=== PATIENT | female | born 1990 | race Hispanic/Latino ===

== ENCOUNTER 2023-09-01 09:48 | Inpatient (IN) | payer BC ==
[2023-08-29 13:23] LABS: Hematocrit 37.8 % (34.9-44.5); Hemoglobin 12.9 g/dL (12.0-15.5); Platelet Count 307 10x3/uL (150-450)
[2023-08-29 14:01] LABS: HBsAg Index 0.14 S/CO (0-0.99); Hep B Surf Ag Non-Reactive S/CO (NonReactive)
[2023-08-29 14:02] LABS: Syphilis Antibody Nonreactive (Nonreactive); Syphilis Antibody Index 0.06 S/CO (<1.00 Non-Reactive)
[~2023-09-01 09:48] MED LIST: Bicitra 30 ML UDCUP PO PRN; CEFAZOLIN 2 GM in Sodium Chloride 0.9% 100 ML IVPB SCH; Carboprost 250 MCG/ML AMP IM PRN; Diphenoxylate HCl/Atropine Tablet PO PRN; Famotidine/PF 20 mg/2ml Vial SLOW IVP PRN; Misoprostol 200 MCG TAB PR PRN; Ondansetron PF 4 MG/2 ML Vial IVP PRN; Oxytocin 30 units/NS 500 ML 500 ML IV SCH; Promethazine HCl 25 MG/ML VIAL IM PRN; hydrALAZINE 20 MG/ML VIAL SLOW IVP PRN
[2023-09-01] MEDS: Lactated Ringer's 1,000 ML IV SCH (10:30)
[2023-09-01 11:15] VITALS: BMI 31.2
[2023-09-01] MEDS ORDERED: Meperidine HCl/PF 25 MG (1 mL) VIAL SLOW IVP PRN (11:17)
[2023-09-01] MEDS ORDERED: Naloxone HCl 0.4 mg/ml Vial IVP PRN ×2 (11:17)
[2023-09-01] MEDS ORDERED: fentaNYL 50 mcg/mL 1 mL Vial SLOW IVP PRN (11:17)
[2023-09-01] MEDS ORDERED: Ondansetron PF 4 MG/2 ML Vial IVP PRN ×3 (11:17→15:28)
[2023-09-01] MEDS ORDERED: HYDROmorphone 0.5 MG/0.5 ML SYRINGE SLOW IVP PRN (11:17)
[2023-09-01] MEDS ORDERED: Promethazine HCl 25 MG/ML VIAL IM PRN ×2 (11:17→15:28)
[2023-09-01] MEDS ORDERED: diphenhydrAMINE 50 MG/ML VIAL IVP PRN (11:17)
[2023-09-01] MEDS ORDERED: Naloxone HCl 0.4 mg/ml Vial IV PRN (11:17)
[2023-09-01] MEDS ORDERED: Moisturizing Cream (Eucerin) 113 GM JAR TOP PRN (11:17)
[2023-09-01] MEDS ORDERED: Communication Order-Pharmacy FS SCH (11:30)
[2023-09-01] MEDS ORDERED: Ketorolac Tromethamine 30 MG (1 mL) VIAL IVP SCH (11:30)
[2023-09-01] MEDS: CEFAZOLIN 2 GM VIAL ONE (12:30)
[2023-09-01] MEDS: Methylergonovine 0.2 MG/ML VIAL IM PRN (12:52)
[2023-09-01] MEDS: Tranexamic Acid 1,000 MG/10 ML VIAL IVP PRN (12:55)
[2023-09-01] MEDS: PHENYLEPHRINE-NS 100 MCG/ML 10 ML SYRINGE ONE ×2 (13:26→13:28)
[2023-09-01] MEDS: Ondansetron PF 4 MG/2 ML Vial ONE (13:26)
[2023-09-01] MEDS: Oxytocin 10 UNITS/ML VIAL ONE (13:26)
[2023-09-01] MEDS: Dexamethasone 4 mg/ml Vial ONE (13:26)
[2023-09-01] MEDS: fentaNYL 50 mcg/mL 1 mL Vial ONE (13:27)
[2023-09-01] MEDS: Morphine PF 10 MG/10 ML VIAL ONE (13:27)
[2023-09-01] MEDS: Erythromycin Base 0.5% Oint 1 GM TUBE ONE (13:27)
[2023-09-01] MEDS: Phytonadione Neonatal 1 MG/0.5 ML AMP ONE (13:28)
[2023-09-01] MEDS ORDERED: hydrALAZINE 20 MG/ML VIAL SLOW IVP PRN (15:28)
[2023-09-01] MEDS ORDERED: Acetaminophen 325 MG TAB PO PRN (15:28)
[2023-09-01] MEDS ORDERED: Bisacodyl 10 MG SUPP PR PRN (15:28)
[2023-09-01] MEDS ORDERED: HYDROcodone/Acetaminophen 5/325 mg Tablet PO PRN ×2 (15:28→23:30)
[2023-09-01] MEDS ORDERED: Lanolin Ointment 7 GM TUBE TOP PRN (15:28)
[2023-09-01] MEDS ORDERED: diphenhydrAMINE 25 MG CAP PO PRN (15:28)
[2023-09-01] MEDS: Docusate 100 MG CAP PO SCH (21:20)
[2023-09-02 04:12] LABS: Hematocrit 32.7 % (34.9-44.5); Hemoglobin 11.2 g/dL (12.0-15.5); Mean Corpuscular HGB CONC 34.3 g/dL (32.0-36.0); Mean Corpuscular Volume 90.6 fL (81.6-98.3); Mean Platelet Volume 10.2 fL (7.4-10.4); Platelet Count 281 10x3/uL (150-450); RBC Distribution Width 15.8 % (11.5-14.5); Red Blood Cell (RBC) Count 3.61 10x6/uL (3.90-5.03); White Blood Cell (WBC) Count 15.8 10x3/uL (3.5-10.5)
[2023-09-02] MEDS: Ketorolac Tromethamine 30 MG (1 mL) VIAL IVP PRN (04:52)
[2023-09-02] MEDS: Ferrous Sulfate 325 MG TAB PO SCH (05:52)
[2023-09-02] MEDS: Prenatal Vitamin 1 TAB PO SCH (08:19)
[2023-09-02] MEDS: Simethicone Chewable 80 MG TAB PO PRN (08:35)
[2023-09-02] MEDS: HYDROcodone/Acetaminophen 5/325 mg Tablet PO PRN (12:41)
[2023-09-02] MEDS: Ibuprofen 800 MG TAB PO SCH (20:48)
[2023-09-03] MEDS: Hepatitis B Vaccine 10 MCG/0.5 ML SYR ONE (20:08)
[2023-09-03] MEDS: Boostrix 0.5 ML (Tdap) VIAL (>/=7 yrs of age) IM ONE (20:08)
[2023-09-04 07:56] VITALS: BP 109/67; TEMP 98.3
== END 2023-09-04 13:45 | disposition home or self-care (01) | DRG 788 ==
LOC: CSHLD 09:48 → CSHPP 15:15
PROVIDERS: ADMIT Obstetrics & Gynecology; ATTEND Obstetrics & Gynecology
PROC: 10D00Z1 Extraction of Products of Conception, Low, Open Approach (ICD-10-PCS; principal; 2023-09-01)
DX: O82 Encounter for cesarean delivery without indication (principal); Z37.0 Single live birth; Z3A.39 39 weeks gestation of pregnancy
CPT/HCPCS: 36415; 51702; 85014; 85018; 85027; 85049; 86780; 86850; 86900; 86901; 87340; J1100; J1885; J2210; J2274; J2405; J2590; J3010; J7120